=== PATIENT | female | born 1955 | race American Indian/Alaskan Native ===

== ENCOUNTER 2017-08-10 13:34 | Outpatient (CLI) | payer OTHER ==
--- NOTE | 2017-08-10 16:43 | Mammography Report ---
BONE DEXA:08/10/17 13:34:00 CLINICAL: Postmenopausal. No comparison. TECHNIQUE: Two site bone DEXA performed on an Hologic scanner. FINDINGS: The average BMD of the lumbar spine L1-L4 is 1.073g/cm squared with a T-score of +0.2 and a Z-score of +0.9. The average BMD of the left hip is 1.103g/cm squared with a T-score of +1.3 and a Z-score of +1.2. IMPRESSION: WHO classification: Normal with average fracture risk based on both spine and left hip measurements. RECOMMENDATION: Clinical correlation and routine screening. DEFINITIONS: BMD = Bone Mineral Density T-score = BMD related to mean peak bone mass of young adult (mean expressed in Standard Deviation) Z-score = Age matched BMD expressed in SD World Health Organization (WHO) Diagnostic Criteria Normal T-score > -1 SD Osteopenia T-score between -1 and -2.4 SD Osteoporosis T-score -2.5 SD or below NOTE: BMD is not the only risk factor for fracture. One should also consider factors such as the patient's age, risk of falling, previous osteoporotic fracture, family history of osteoporotic fractures, current smoker, and low body weight. Z-scores are not calculated if >80 years of age.
--- NOTE | 2017-08-11 08:55 | Mammography Report ---
BILATERAL DIGITAL SCREENING MAMMOGRAM with CAD: 08/10/17 13:34:00 CLINICAL: Routine screening. COMPARISON:08/10/17 FINDINGS: The breasts are heterogeneously dense, which may obscure small masses. No mass, architectural distortion or suspicious calcifications. IMPRESSION: No mammographic evidence of malignancy. BI-RADS CATEGORY: 1 - - Negative RECOMMENDATION: Routine mammographic screening in one year. COMMENT: Patient follow-up letters are generated by our [employer] application.
== END 2017-08-10 13:35 | disposition home or self-care (01) ==
LOC: MAMMO 13:34
PROVIDERS: ATTEND Internal Medicine
DX: Z12.31 Encounter for screening mammogram for malignant neoplasm of breast (principal); Z13.820 Encounter for screening for osteoporosis; Z78.0 Asymptomatic menopausal state
CPT/HCPCS: 77080; G0202; 77067

== ENCOUNTER 2020-05-26 13:32 | Outpatient (CLI) | payer OTHER ==
--- NOTE | 2020-05-26 15:08 | XRay Report ---
Lumbar spine 6 views INDICATION: Back pain IMPRESSION: Multilevel discogenic and facet arthropathy causing [id number] neural foraminal carrington rowing at L5-S1. Signer Name: Justice Castillo MD Signed: 05/26/2020 3:04 PM Workstation Name: [id number]
== END 2020-05-26 13:33 | disposition home or self-care (01) ==
LOC: XRAY 13:32
PROVIDERS: ATTEND Internal Medicine
DX: M47.817 Spondylosis without myelopathy or radiculopathy, lumbosacral region (principal); M54.5 Low back pain; M48.07 Spinal stenosis, lumbosacral region
CPT/HCPCS: 72100